=== PATIENT | male | born 1990 ===

== ENCOUNTER 2018-04-20 06:26 | Emergency (ER) | payer OTHER ==
[2018-04-20 06:44] VITALS: TEMP 97.4
[2018-04-20] MEDS ORDERED: diaZEpam 10 mg/2 ml Inj IVP ONE (07:39)
[2018-04-20] MEDS ORDERED: diaZEpam 10 mg/2 ml Inj ONE (08:34)
[2018-04-20 08:37] LABS: BASO % 0.3 % (0.0-2.0); EOS % 0.3 % (0.0-4.0); HEMOGLOBIN 16.3 g/dL (12.0-18.0); LYMPH # 1.2 K/uL (1.0-4.3); LYMPH % 12.2 % (20.0-40.0); MEAN CELL VOLUME 86.7 fL (80.0-94.0); MEAN CORPUSCULAR HEMOGLOBIN 29.6 pg (27.0-31.0); MEAN CORPUSCULAR HGB CONC 34.1 g/dL (33.0-37.0); MEAN PLATELET VOLUME 9.3 fL (7.2-11.7); MONO # 0.5 K/uL (0.0-0.8); MONO % 5.1 % (0.0-10.0); NEUT # 8.1 K/uL (1.8-7.0); NEUT % 82.1 % (50.0-75.0); NRBC % 0.1 % (0.0-2.0); RBC 5.52 Mil/uL (4.40-5.90); RED CELL DISTRIBUTION WIDTH 13.7 % (11.5-14.5); WHITE BLOOD COUNT 9.9 K/uL (4.8-10.8)
[2018-04-20 08:41] LABS: SQUAMOUS EPITHIAL 1 /hpf (0-5); URINE BILIRUBIN NEGATIVE (NEGATIVE); URINE BLOOD NEGATIVE (NEGATIVE); URINE CLARITY Hazy (Clear); URINE COLOR Yellow (YELLOW); URINE GLUCOSE (UA) NORMAL (Normal); URINE LEUKOCYTE ESTERASE NEG Leu/uL (Negative); URINE PROTEIN NEGATIVE (NEGATIVE); URINE UROBILINOGEN NORMAL mg/dL (0.2-1.0)
--- NOTE | 2018-04-20 08:42 | CT ---
Date of service: 04/20/2018 PROCEDURE: CT HEAD WITHOUT CONTRAST. HISTORY: s/p fall COMPARISON: None available. TECHNIQUE: Axial computed tomography images were obtained through the head/brain without intravenous contrast. Radiation dose: Total exam DLP = 1116.7 mGy-cm. This CT exam was performed using one or more of the following dose reduction techniques: Automated exposure control, adjustment of the mA and/or kV according to patient size, and/or use of iterative reconstruction technique. FINDINGS: HEMORRHAGE: No intracranial hemorrhage. BRAIN: No mass effect or edema. No atrophy or chronic microvascular ischemic changes. VENTRICLES: Unremarkable. No hydrocephalus. CALVARIUM: Unremarkable. PARANASAL SINUSES: Unremarkable as visualized. No significant inflammatory changes. MASTOID AIR CELLS: Unremarkable as visualized. No inflammatory changes. OTHER FINDINGS: None. IMPRESSION: Normal CT of the Head. No acute intracranial hemorrhage.
[2018-04-20 08:45] VITALS: RESP 18
[2018-04-20 08:48] LABS: ALB/GLOB RATIO 1.4 (1.0-2.1); ALBUMIN 4.8 g/dL (3.5-5.0); BLOOD UREA NITROGEN 15 mg/dL (9-20); CALCIUM 9.5 mg/dl (8.6-10.4); GFR NON-AFRICAN AMERICAN > 60
[2018-04-20 08:49] LABS: ALT/SGPT 13 U/L (21-72); AST/SGOT 28 U/L (17-59)
--- NOTE | 2018-04-20 08:51 | CT ---
Date of service: 04/20/2018 PROCEDURE: CT NECK WITHOUT CONTRAST HISTORY: neck pain COMPARISON: None available. TECHNIQUE: CT of the neck without intravenous contrast. Coronal and sagittal reformats generated. Radiation dose: Total exam DLP = 380.41 mGy-cm. This CT exam was performed using one or more of the following dose reduction techniques: Automated exposure control, adjustment of the mA and/or kV according to patient size, and/or use of iterative reconstruction technique. FINDINGS: NASOPHARYNX: Unremarkable. SUPRAHYOID NECK: Unremarkable oropharynx, oral cavity, parapharyngeal space and retropharyngeal space. INFRAHYOID NECK: Unremarkable larynx, hypopharynx, and supraglottic space. Vocal cords intact. MASS: None. GLANDS: Parotid and submandibular glands unremarkable. Normal size thyroid gland, without nodule. LYMPH NODES: Normal. No lymphadenopathy. CERVICAL SPINE: No fracture or focal lesion. OTHER FINDINGS: None. IMPRESSION: Unremarkable non-contrast enhanced CT of the neck.
--- NOTE | 2018-04-20 09:04 | C.PDOC ---
History Of Present Illness 27 y/o male presents by EMS for medical evaluation of syncope. Patient reports syncope after yawning this morning after experiencing excruciating pain. He fell face forward on floor and woke up with neck pain. He rates it a 9/10. He states that the pain is mainly sharp and located at the anterolateral left side of neck. He mentions previous episode prior a couple years ago but not to this extent. At that time, felt that something "dislodge" from his neck and was able to "push it back in place." He denies any headache, vertigo, dizziness, fever, chills, chest pain, nausea, and vomiting. He denies any other injuries. Time Seen by Provider: 04/20/18 07:07 Chief Complaint (Nursing): ENT Problem History Per: Patient History/Exam Limitations: no limitations Onset/Duration Of Symptoms: Hrs Current Symptoms Are (Timing): Still Present Number Of Syncopal Episodes: 1 Activity At Onset Of Symptoms: Other (yawned and felt pain in neck) Associated Symptoms Preceding Syncopal Episode: No Predromal Symptoms (Sudden Onset) Seizure Or Post-ictal Symptoms: None Fall Associated With With Symptoms: Other (bruise on head with tenderness to palpation but no headache) Past Medical History Reviewed: Historical Data, Nursing Documentation, Vital Signs Vital Signs: Last Vital Signs Temp 97.4 F L 04/20/18 06:38 Pulse 68 04/20/18 08:40 Resp 18 04/20/18 08:40 BP 97/62 L 04/20/18 08:40 Pulse Ox 100 04/20/18 08:40 Family History: States: Unknown Family Hx - Social History Hx Alcohol Use: Yes Hx Substance Use: No - Immunization History Hx Tetanus Toxoid Vaccination: No Hx Influenza Vaccination: No Hx Pneumococcal Vaccination: No Review Of Systems Constitutional: Negative for: Fever, Chills, Weakness Eyes: Negative for: Vision Change Cardiovascular: Negative for: Chest Pain Respiratory: Negative for: Shortness of Breath Gastrointestinal: Negative for: Nausea, Vomiting, Abdominal Pain Genitourinary: Negative for: Incontinence Musculoskeletal: Positive for: Neck Pain. Negative for: Shoulder Pain, Back Pain Skin: Positive for: Bruising (on forehead above right eye) Neurological: Negative for: Headache, Dizziness Physical Exam - Physical Exam Appears: Non-toxic, No Acute Distress, Other (uncomfortable) Skin: Warm, Dry, Ecchymosis (forehead; supraorbitally right) Head: Normacephalic, No Tenderness Eye(s): bilateral: Normal Inspection, PERRL Ear(s): Bilateral: Normal (TM intact B/L; nonerythematous ) Throat: No Erythema, No Exudate, No Drooling Neck: Decreased ROM (due to pain; no meningeal signs) Chest: Symmetrical Cardiovascular: Rhythm Regular Respiratory: Normal Breath Sounds, No Wheezing Gastrointestinal/Abdominal: Soft, No Tenderness Extremity: Bilateral: Atraumatic, Normal Color And Temperature, Normal ROM Neurological/Psych: Oriented x3, Normal Speech, Normal Cognition, Normal Motor, Normal Sensation ED Course And Treatment - Laboratory Results Result Diagrams: 04/20/18 08:27 04/20/18 08:27 Lab Results: Total Bilirubin 0.8 mg/dL (0.2-1.3) 04/20/18 08:27 AST 28 U/L (17-59) 04/20/18 08:27 ALT 13 U/L (21-72) L 04/20/18 08:27 Alkaline Phosphatase 83 U/L (38-126) 04/20/18 08:27 Total Protein 8.2 g/dL (6.3-8.3) 04/20/18 08:27 Albumin 4.8 g/dL (3.5-5.0) 04/20/18 08:27 Globulin 3.4 gm/dL (2.2-3.9) 04/20/18 08:27 Albumin/Globulin Ratio 1.4 (1.0-2.1) 04/20/18 08:27 Urine Color Yellow (YELLOW) 04/20/18 08:27 Urine Clarity Hazy (Clear) 04/20/18 08:27 Urine pH 7.0 (5.0-8.0) 04/20/18 08:27 Ur Specific Freeman 1.020 (1.003-1.030) 04/20/18 08:27 Urine Protein Negative mg/dL (NEGATIVE) 04/20/18 08:27 Urine Glucose (UA) Normal mg/dL (Normal) 04/20/18 08:27 Urine Ketones Negative mg/dL (NEGATIVE) 04/20/18 08:27 Urine Blood Negative (NEGATIVE) 04/20/18 08:27 Urine Nitrate Negative (NEGATIVE) 04/20/18 08:27 Urine Bilirubin Negative (NEGATIVE) 04/20/18 08:27 Urine Urobilinogen Normal mg/dL (0.2-1.0) 04/20/18 08:27 Ur Leukocyte Esterase Neg Chastity/uL (Negative) 04/20/18 08:27 Urine WBC (Auto) 1 /hpf (0-5) 04/20/18 08:27 Urine RBC (Auto) 1 /hpf (0-3) 04/20/18 08:27 Ur Squamous Epith Cells 1 /hpf (0-5) 04/20/18 08:27 O2 Sat by Pulse Oximetry: 100 - CT Scan/US head Other Rad Studies (CT/US): Read By Radiologist, Radiology Report Reviewed CT/US Interpretation: Accession No. : [id number]. Patient Name / ID : LIZ CUEVAS / [id number]. Exam Date : 04/20/2018 07:53:04 ( Approved ). Study Comment : Sex / Age : M / 27Y. Creator : Adalberto Pena MD. Dictator : Adalberto Pena MD. Scalping Machine Operator : Print Washer : Adalberto Pena MD. Approver2 : Report Date : 04/20/2018 08:38:56. My Comment : . Date of service: 04/20/2018. PROCEDURE: CT HEAD WITHOUT CONTRAST. HISTORY: s/p fall. COMPARISON: None available. TECHNIQUE: Axial computed tomography images were obtained through the head/brain without intravenous contrast. Radiation dose: Total exam DLP = 1116.7 mGy-cm. This CT exam was performed using one or more of the following dose reduction techniques: Automated exposure control, adjustment of the mA and/or kV according to patient size, and/or use of iterative reconstruction technique. FINDINGS: HEMORRHAGE: No intracranial hemorrhage. BRAIN: No mass effect or edema. No atrophy or chronic microvascular ischemic changes. VENTRICLES: Unremarkable. No hydrocephalus. CALVARIUM: Unremarkable. PARANASAL SINUSES: Unremarkable as visualized. No significant inflammatory changes. MASTOID AIR CELLS: Unremarkable as visualized. No inflammatory changes. OTHER FINDINGS: None. IMPRESSION: Normal CT of the Head. No acute intracranial hemorrhage. neck Other Rad Studies (CT/US): Read By Radiologist, Radiology Report Reviewed CT/US Interpretation: Accession No. : [id number]. Patient Name / ID : LIZ CUEVAS / [id number]. Exam Date : 04/20/2018 07:55:44 ( Approved ). Study Comment : Sex / Age : M / 27Y. Creator : Adalberto Pena MD. Dictator : Adalberto Pena MD. Scalping Machine Operator : Print Washer : Adalberto Pena MD. Approver2 : Report Date : 04/20/2018 08:48:19. My Comment : . Date of service: 04/20/2018. PROCEDURE: CT NECK WITHOUT CONTRAST. HISTORY: neck pain. COMPARISON: None available. TECHNIQUE: CT of the neck without intravenous contrast. Coronal and sagittal reformats generated. Radiation dose: Total exam DLP = 380.41 mGy-cm. This CT exam was performed using one or more of the following dose reduction techniques: Automated exposure control, adjustment of the mA and/or kV according to patient size, and/or use of iterative reconstruction technique. FINDINGS: NASOPHARYNX: Unremarkable. SUPRAHYOID NECK: Unremarkable oropharynx, oral cavity, parapharyngeal space and retropharyngeal space. INFRAHYOID NECK: Unremarkable larynx, hypopharynx, and supraglottic space. Vocal cords intact. MASS: None. GLANDS: Parotid and submandibular glands unremarkable. Normal size thyroid gland, without nodule. LYMPH NODES: Normal. No lymphadenopathy. CERVICAL SPINE: No fracture or focal lesion. OTHER FINDINGS: None. IMPRESSION: Unremarkable non-contrast enhanced CT of the neck. Medical Decision Making Medical Decision Making: Syncope, Neck Pain Plan: - CT Head and Neck - Labs - Valium given Patient reassessed and states pain has improved but is still uncomfortable CT reviewed -unremarkable Toradal given Decadron given Reassessed with ADAN Fournier and Dr. Kim Reassured patient and referred to ENT/PMD Patient verbalized understanding and agrees with plan Stable for discharge Disposition Counseled Patient/Family Regarding: Studies Performed, Diagnosis, Need For Followup, Rx Given - Disposition Referrals: Obinna Mcgrath MD [Staff Provider] - Disposition: HOME/ ROUTINE Disposition Time: 10:24 Condition: IMPROVED Additional Instructions: [facility], thank you for letting us take care of you today. Your provider was Mike Kim DO/Mahamed Hunt PA-C and you were treated for NECK PAIN. The emergency medical care you received today was directed at your acute symptoms. If you were prescribed any medication, please fill it and take as directed. It may take several days for your symptoms to resolve. Return to the Emergency Department if your symptoms worsen, do not improve, or if you have any other problems. Please contact your doctor or call one of the physicians/clinics you have been referred to that are listed on the Patient Visit Information form that is included in your discharge packet. Bring any paperwork you were given at discharge with you along with any medications you are taking to your follow up visit. Our treatment cannot replace ongoing medical care by a primary care provider outside of the emergency department. Thank you for allowing the [facility] team to be part of your care today. Prescriptions: diaZEpam [Valium] 5 mg PO TID PRN #9 tab PRN Reason: Muscle Spasm RX: Naproxen [Naprosyn] 500 mg PO BID #30 tablet Instructions: Closed Head Injury (DC), Neck Sprain (DC), Generalized Neck Pain (DC), Head Injury Observation (DC) Forms: Pocits (Faroese) - Clinical Impression Clinical Impression: Neck pain on left side, Neck muscle strain, Minor head injury - PA / HERBICIDE SPRAYER / Resident Statement FLOR has reviewed & agrees with the documentation as recorded.
[2018-04-20 09:05] LABS: BARBITURATES, UR NEGATIVE (NEGATIVE); BENZODIAZEPINES, UR NEGATIVE (NEGATIVE); OPIATES, UR NEGATIVE (NEGATIVE); PHENCYCLIDINE, UR NEGATIVE (NEGATIVE)
[2018-04-20] MEDS ORDERED: Dexamethasone 4 mg/1 ml IVP STA (09:55)
[2018-04-20] MEDS ORDERED: Dexamethasone 4 mg/1 ml ONE (10:07)
[2018-04-20 10:13] VITALS: BP 108/69; PULSE 74
[2018-04-20 10:16] VITALS: O2SAT 100
--- NOTE | 2018-04-21 11:32 | CARD ---
APPROVED REPORT Date of service: 04/20/2018 EKG Measurement Heart [id number] <Conclusion> Normal sinus rhythm with sinus arrhythmia Possible Left atrial enlargement Borderline ECG
== END 2018-04-20 10:48 | disposition home or self-care (01) ==
LOC: C.ER 06:26
DX: S16.1XXA Strain of muscle, fascia and tendon at neck level, initial encounter (principal); S00.83XA Contusion of other part of head, initial encounter; W18.30XA Fall on same level, unspecified, initial encounter; M54.2 Cervicalgia
CPT/HCPCS: 70450; 70490; 80053; 80320; 80324; 80345; 80346; 80349; 80353; 80358; 80361; 81001; 82948; 83992; 85025; 93005; 96374; 96375; 99284; J1100; J1885; J3360